=== PATIENT | female | born 1965 | race Two or more races ===

== ENCOUNTER 2025-04-15 11:16 | Emergency (ER) | payer OTHER ==
[~2025-04-15] VITALS: Ht 157.5 cm; Wt 53.5 kg
[2025-04-15] MEDS ORDERED: IBRANCE125 M1 PO (11:24)
[2025-04-15 12:54] LABS: BASO % 1.6 % (0.1-1.2); EOS % 2.2 % (0.7-7.0); HEMATOCRIT 33.7 % (34.1-44.9); HEMOGLOBIN 11.8 g/dL (11.2-15.7); LYMPH # 1.64 (1.18-3.74); LYMPH % 36.7 % (19.3-53.1); MEAN CORPUSCULAR HEMOGLOBIN 38.1 pg (25.6-32.2); MONO # 0.14 (0.24-0.82); MONO % 3.1 % (4.7-12.5); NEUT # 2.51 (1.56-6.13); NEUT % 56.2 % (34.0-71.1); PLATELET COUNT 165 K/uL (163-369); RED CELL DISTRIBUTION WIDTH 15.1 % (11.6-14.4)
[2025-04-15 13:50] LABS: BILIRUBIN TOTAL 0.78 mg/dL (0.3-1.2); BILIRUBIN,CONJUGATED 0.22 mg/dL (0.0-0.2); BILIRUBIN,UNCONJUGATED 0.56 mg/dL (0.0-0.6); CREATININE SERUM 0.74 mg/dL (0.55-1.02); GFR 79.78; POTASSIUM 3.81 mEq/L (3.5-5.1); TOTAL PROTEIN 8.8 gm/dL (6.4-8.2)
[2025-04-15 13:57] LABS: URINE APPEARANCE Clear; URINE BILIRRUBIN Negative (NEGATIVE); URINE BLOOD Negative; URINE COLOR Yellow; URINE GLUCOSE Negative (NEGATIVE); URINE KETONE Trace (NEGATIVE); URINE LEUKOCYTE Trace; URINE NITRATE Negative; URINE PROTEIN Trace (NEGATIVE); URINE UROBILINOGEN 0.2 E.U./dl
[2025-04-15 14:01] LABS: URINE BACTERIA 36.7 uL (0.0-1933); URINE EPITHELIAL CELLS 7.4 uL (0.0-38.8); URINE RBC 14.2 uL (0.0-20.8); URINE WBC 7.7 uL (0.0-23.2)
[2025-04-15 14:09] LABS: COVID-19 AG NEGATIVE (NEGATIVE); INFLUENZA A AG NEGATIVE (NEGATIVE)
[2025-04-15 15:11] LABS: URINE CAST 0.14 uL (0.0-1.40)
== END 2025-04-15 15:27 | disposition home or self-care (01) ==
LOC: ER 12:06
PROVIDERS: General Practice
DX: R05.9 Cough, unspecified (principal); Z20.822 Contact with and (suspected) exposure to COVID-19; Z91.013 Allergy to seafood

== ENCOUNTER 2025-06-27 00:16 | Emergency (ER) | payer OTHER ==
[~2025-06-27] VITALS: Ht 157.5 cm; Wt 54.4 kg
[~2025-06-27 00:16] MED LIST: IBRANCE125 M1 PO
[2025-06-27] MEDS ORDERED: ONDANSETRON HCL 2 MG/ML VIAL IV STA (01:22)
[2025-06-27] MEDS ORDERED: FAMOTIDINE/PF 20 MG/2 ML VIAL IV PUSH STA ×2 (01:22→07:28)
[2025-06-27] MEDS ORDERED: 0.9 % SODIUM CHLORIDE 1,000 ML IV ONE (01:30)
[2025-06-27 01:49] LABS: BASO % 1.0 % (0.1-1.2); EOS # 0.00 (0.04-0.54); EOS % 0.0 % (0.7-7.0); LYMPH # 0.19 (1.18-3.74); LYMPH % 9.7 % (19.3-53.1); MEAN PLATELET VOLUME 10.20 fl (9.4-12.4); MONO # 0.12 (0.24-0.82); MONO % 6.2 % (4.7-12.5); NEUT # 1.61 (1.56-6.13); NEUT % 82.6 % (34.0-71.1); RED CELL DISTRIBUTION WIDTH 16.2 % (11.6-14.4)
[2025-06-27 03:55] LABS: ALT/SGPT 18.0 U/L (12-78); AST/SGOT 19.0 U/L (15-37); BILIRUBIN TOTAL 0.44 mg/dL (0.3-1.2); BUN CREA RATIO 22.0 (7.0-25.0); CREATININE SERUM 0.6 mg/dL (0.55-1.02); GFR 101.3; GLOBULINA 4.0 G/DL (2.4-3.5); GLUCOSE FASTING 124.0 mg/dL (65-100); OSMOLALITY SERUM 283.0 MOSM/KG (275-295)
[2025-06-27] MEDS ORDERED: ZOFRAN8 MG PO (06:56)
[2025-06-27] MEDS ORDERED: PEPCID40 MG PO (06:56)
[2025-06-27] MEDS ORDERED: SUCRALFATE 1 G TABLET PO STA (07:28)
== END 2025-06-27 13:00 ==
LOC: ER 00:16
PROVIDERS: General Practice
DX: R11.10 Vomiting, unspecified (principal); Z91.013 Allergy to seafood; Z85.89 Personal history of malignant neoplasm of other organs and systems